=== PATIENT | female | born 1990 | race Asian ===

== ENCOUNTER → 2025-05-11 10:28 | Outpatient (CLI) | payer OTHER, SELFPAY ==
--- NOTE | 2025-05-11 10:31 | DI.RAD.S_ITS ---
PROCEDURE: XR CHEST 2V INDICATIONS: Cough TECHNIQUE: 2 views of the chest were acquired. COMPARISON: None. FINDINGS: Surgical changes and devices: None. Lungs and pleura: Lungs are clear. No pleural effusions or pneumothorax. Mediastinum: Mediastinal contours are normal. Heart size is normal. Bones and chest wall: No suspicious bony abnormalities. Soft tissues appear unremarkable. IMPRESSION: No acute cardiopulmonary abnormality is seen. Dictated by: Oren Leija M.D. on 05/12/2025 at 23:10 Approved by: Oren Leija M.D. on 05/12/2025 at 23:11
== END ==
PROVIDERS: Referring Provider Nurse Practitioner Family; Visit Provider Nurse Practitioner Family
DX: R05.9 Cough, unspecified (principal)
CPT/HCPCS: 71046